=== PATIENT | female | born 2000 | race Caucasian/White ===

== ENCOUNTER 2020-06-24 06:56 | Inpatient (IN) | payer OTHER ==
[~2020-06-24 06:56] MED LIST: Bupivacaine 0.25% 10 ML SDV ONE
[2020-06-24] MEDS ORDERED: Sodium Chloride 0.9% 10 ML Syringe FLUSH PRN ×2 (07:19→07:22)
[2020-06-24] MEDS ORDERED: Lidocaine 1% 50 ML MDV INJECT ONE ×2 (07:19→07:30)
[2020-06-24] MEDS ORDERED: Acetaminophen 325 MG Tab PO PRN ×2 (07:19→07:30)
[2020-06-24] MEDS ORDERED: Calcium Carbonate 500 MG Tab.Chew PO PRN (07:19)
[2020-06-24] MEDS ORDERED: Nalbuphine 10 MG/ML Syringe IVPUSH PRN ×2 (07:19→07:22)
[2020-06-24] MEDS ORDERED: Ondansetron 4 MG/2 ML SDV IVPUSH PRN ×2 (07:19→07:30)
[2020-06-24] MEDS ORDERED: Famotidine 20 MG Tab PO PRN (07:30)
[2020-06-24] MEDS ORDERED: Simethicone 80 MG Tab.Chew PO ONE (07:30)
[2020-06-24] MEDS ORDERED: Oxytocin/Lactated Ringers 10 UNIT/1,000 ML BAG IV SCH ×3 (07:30)
[2020-06-24] MEDS ORDERED: Lactated Ringers 1,000 ML IV SCH (07:30)
[2020-06-24] MEDS ORDERED: Citric Acid/Sodium Citrate Solution 30 ML Cup PO PRN (07:30)
--- NOTE | 2020-06-24 08:18 | PCM.LDHP ---
L&D History of Present Illness - General Date of Service: 06/24/20 Admit Problem/Dx: Patient Status Order with Admit Dx/Problem 06/24/20 07:20 Patient Status [ADT] Routine Admission Diagnosis/Problem Admission Diagnosis/Problem Source of Information: Patient History Limitations: Reports: No Limitations - History of Present Illness Introduction:: 19 yo A1 at 39 weeks gestation with EDC determined by ultrasound at 13 weeks. She did have a placenta previa noted initially, but that resolved with subsequent ultrasounds. Baby has been small, measuring 2 weeks behind on ultrasound and 11% with the working EDC. We have been seeing her twice weekly with BPP and NST. She has had several BPP that scored 6/8 but then NST that day has been reactive, so final BPP score 8/10. Last ultrasound on 06/18/20 and EFW was 6 lb 1oz. She is admitted for induction of labor due to small baby. MARIAMA on last ultrasound was 15, cephalic presentation and possibly nuchal cord. I have never seen variable decels on NST. She is RH negative (A neg) and received Rhogam in April 2020. Her infectious disease screenings have been negative. 1 hour glucola normal at 116 and GBS swab negative. She did not do any screening for trisomy. She did receive Tdap immunization during the . She has been feeling well, just some [place]. Denies leaking fluid. NST on admission initially showed baby in a sleep pattern, but has since improved with moderate variability and good accelerations 15x15. No decels. Uterine irritability noted. Baseline FHR 120. 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 : 2 Para: 0 LMP (Approximate): Other OB/BYN History: Spontaneous miscarriage in March 2019 Social & Family History - Alcohol Use Alcohol Use History: No - Recreational Drug Use Recreational Drug Use: No - Living Situation & Occupation Living situation: Reports: H&P Review of Systems - Review of Systems: Review Of Systems: See Below General: Reports: No Symptoms HEENT: Reports: No Symptoms Pulmonary: Reports: No Symptoms Cardiovascular: Reports: No Symptoms Gastrointestinal: Reports: No Symptoms Genitourinary: Reports: No Symptoms Musculoskeletal: Reports: No Symptoms Skin: Reports: No Symptoms Psychiatric: Reports: No Symptoms Neurological: Reports: No Symptoms Hematologic/Lymphatic: Reports: No Symptoms Immunologic: Reports: No Symptoms L&D Exam - Exam Exam: See Below - Vital Signs Weight: 70.261 kg - OB Specific Contraction Frequency (min): Uterine irritability Movement: Active Heart Tones: Present Heart Tones per Min: 120 Heart Rate (FHR) Variability: Moderate (6-25 bmp) Presentation: Vertex Estimated Weight: 6 lb 1 oz - Michael Score Michael Score Cervix Position: Posterior Michael Score Consistency: Medium Michael Score Effacement: 0-30% Michael Score Dilation: Closed Michael Score Infant's Station: -3 Michael Score Total: 1 - Exam General: Alert, Oriented, Cooperative HEENT: Conjunctiva Clear, Mucosa Moist & [place], Pupils Equal, Pupils Reactive Neck: Supple, Trachea Midline Lungs: Normal Respiratory Effort Cardiovascular: Regular Rate, Regular Rhythm GI/Abdominal Exam: Soft, Non-Tender Rectal Exam: Deferred Genitourinary: Normal external exam Back Exam: Normal Inspection, Full Range of Motion Extremities: Normal Inspection, Non-Tender, No Pedal Edema Skin: Warm, Dry, Intact Psychiatric: Alert, Normal Affect, Normal Mood - Patient Data Lab Results Last 24 hrs: Laboratory Results - last 24 hr 06/24/20 Range/Units 07:37 WBC 10.10 H (3.98-10.04) K/mm3 RBC 4.26 (3.98-5.22) M/mm3 Hgb 13.7 (11.2-15.7) gm/dl Hct 40.2 (34.1-44.9) % MCV 94.4 (79.4-94.8) fl MCH 32.2 (25.6-32.2) pg MCHC 34.1 (32.2-35.5) g/dl RDW Std Deviation 43.0 (36.4-46.3) fL Plt Count 214 (182-369) K/mm3 MPV 10.1 (9.4-12.3) fl Neut % (Auto) 72.6 H (34.0-71.1) % Lymph % (Auto) 16.3 L (19.3-51.7) % [place] % (Auto) 9.7 (4.7-12.5) % Eos % (Auto) 0.7 (0.7-5.8) Baso % (Auto) 0.2 (0.1-1.2) % Neut # (Auto) 7.33 H (1.56-6.13) K/mm3 Lymph # (Auto) 1.65 (1.18-3.74) K/mm3 [place] # (Auto) 0.98 H (0.24-0.36) K/mm3 Eos # (Auto) 0.07 (0.04-0.36) K/mm3 Baso # (Auto) 0.02 (0.01-0.08) K/mm3 Result Diagrams: 06/24/20 07:37 - Problem List (1) 39 weeks gestation of SNOMED Code(s): 96472156 ICD Code: Z3A.39 - 39 WEEKS GESTATION OF Status: Acute Current Visit: Yes (2) Small for gestational age fetus affecting mother, antepartum SNOMED Code(s): 901757110, 480221884742 ICD Code: O36.5990 - MATERN CARE FOR OTH OR SUSP POOR FETL GRTH, UNSP TRI, UNSP Status: Acute Current Visit: Yes (3) Rh negative status during in third trimester SNOMED Code(s): 612148215 ICD Code: O26.893 - OTH RELATED CONDITIONS, THIRD TRIMESTER; Z67.91 - UNSPECIFIED BLOOD TYPE, RH NEGATIVE Status: Acute Current Visit: Yes (4) GERD (gastroesophageal reflux disease) SNOMED Code(s): 441591831 ICD Code: K21.9 - GASTRO-ESOPHAGEAL REFLUX DISEASE WITHOUT ESOPHAGITIS Status: Acute Current Visit: Yes Problem List Initiated/Reviewed/Updated: Yes Orders Last 24hrs: Active Orders 24 hr Category Date Time Status Patient Status [ADT] Routine ADT 06/24/20 07:20 Active Activity as Tolerated [RC] PFP Care 06/24/20 07:19 Active Communication Order [RC] ASDIRECTED Care 06/24/20 07:19 Active Communication Order [RC] ASDIRECTED Care 06/24/20 07:22 Active Heart Tones [RC] ASDIRECTED Care 06/24/20 07:23 Active Non Stress Test [RC] PER UNIT ROUTINE Care 06/24/20 07:19 Active Intake and Output [RC] QSHIFT Care 06/24/20 07:24 Active Notify Provider [RC] PRN Care 06/24/20 07:19 Active Notify Provider [RC] PRN Care 06/24/20 07:22 Active Peripheral IV Care [RC] . DIRECTED Care 06/24/20 07:19 Active Urinary Catheter Assessment [RC] ASDIRECTED Care 06/24/20 07:19 Active Vital Signs [RC] PER UNIT ROUTINE Care 06/24/20 07:19 Active Regular Diet [DIET] Diet 06/24/20 Breakfast Active CORONAVIRUS COVID-19 RAPID [MOLEC] Stat Lab 06/24/20 07:37 Received RAPID PLASMA REAGIN,RPR [CHEM] Routine Lab 06/24/20 07:37 Received TYPE AND SCREEN [BBK] Stat Lab 06/24/20 07:37 Received Acetaminophen [TylenoL] Med 06/24/20 07:19 Active 650 mg PO Q4H PRN Calcium Carbonate [Tums] Med 06/24/20 07:19 Active 1,000 mg PO Q2H PRN Citric Acid/Sodium Citrate [Bicitra Solution] Med 06/24/20 07:30 Active 15 ml PO Q4H PRN Famotidine [Pepcid] Med 06/24/20 07:30 Active 20 mg PO Q12H PRN Lactated Ringers [Ringers, Lactated] 1,000 ml Med 06/24/20 07:30 Active IV ASDIRECTED Nalbuphine [Nubain] Med 06/24/20 07:19 Active 10 mg IVPUSH Q2H PRN Ondansetron [Zofran] Med 06/24/20 07:19 Active 4 mg IVPUSH Q4H PRN Oxytocin/Lactated Ringers [Pitocin in LR 10 Units/1,000 Med 06/24/20 07:30 Active ML] 10 unit in 1,000 ml IV .CONTINUOUS Oxytocin/Lactated Ringers [Pitocin in LR 10 Units/1,000 Med 06/24/20 07:30 Active ML] 10 unit in 1,000 ml IV TITRATE Sodium Chloride 0.9% [Saline Flush] Med 06/24/20 07:19 Active 10 ml FLUSH ASDIRECTED PRN Electronic Heart Tones Ext w TOCO [WOMSER] Oth 06/24/20 07:19 Ordered Routine Electronic Heart Tones Internal [WOMSER] Per Unit Ot 06/24/20 07:19 Ordered Routine Peripheral IV Insertion Adult [OM.PC] Routine [facility] 06/24/20 07:19 Ordered Telemetry Monitoring [WOMSER] Routine [facility] 06/24/20 07:22 Ordered Resuscitation Status Routine Resus Stat 06/24/20 07:19 Ordered Medication Orders Acetaminophen (Tylenol) 650 mg PO Q4H PRN PRN Reason: Pain (Mild 1-3) and fever Calcium Carbonate/Glycine (Tums) 1,000 mg PO Q2H PRN PRN Reason: Indigestion Citric Acid/Sodium Citrate (Bicitra Solution) 15 ml PO Q4H PRN PRN Reason: Indigestion Famotidine (Pepcid) 20 mg PO Q12H PRN PRN Reason: Heartburn Oxytocin/Lactated Ringer's (Pitocin In Lr 10 Units/1,000 Ml) 10 unit in 1,000 mls @ 12 mls/hr IV TITRATE SANJAY; Protocol Oxytocin/Lactated Ringer's (Pitocin In Lr 10 Units/1,000 Ml) 10 unit in 1,000 mls @ 100 mls/hr IV .CONTINUOUS SANJAY; Protocol Lactated Ringer's (Ringers, Lactated) 1,000 mls @ 100 mls/hr IV ASDIRECTED SANJAY Nalbuphine HCl (Nubain) 10 mg IVPUSH Q2H PRN PRN Reason: Pain Ondansetron HCl (Zofran) 4 mg IVPUSH Q4H PRN PRN Reason: Nausea/Vomiting Sodium Chloride (Saline Flush) 10 ml FLUSH ASDIRECTED PRN PRN Reason: Keep Vein Open Assessment/Plan Comment:: at 39 weeks gestation with SGA baby, on 11% for weight growth curve on ultrasound. Weekly BPP and NST have been wnl. Baby has still been active. GBS negative. RH negative. Cervix is not favorable. Plan: Cervical ripening with cytotec 25 mcg vaginal tabs q 4 h. Attempt mullins catheter to help with cervical ripening after first cytote c dose. Pitocin induction per protocol when appropriate. Continuous monitoring for now. Ultrasound suggested a nuchal cord. Mom plans to breast feed.
[2020-06-24] MEDS: Misoprostol 25 MCG (1/4 of 100 MCG) Tab VAG SCH ×3 (08:55→19:49)
[2020-06-24] MEDS ORDERED: Bupivacaine/fentaNYL/NS 100 ML Bag EPIDUR PRN (09:49)
[2020-06-24] MEDS ORDERED: ePHEDrine 50 MG/ML SDV IVPUSH PRN (09:49)
[2020-06-24] MEDS ORDERED: diphenhydrAMINE 50 MG/ML SDV IVPUSH PRN (09:49)
[2020-06-24] MEDS ORDERED: fentaNYL 100 MCG/2 ML SDV EPIDUR PRN (09:49)
--- NOTE | 2020-06-24 13:25 | PCM.PNLD ---
Labor Progress Note - VS & Meds Vital Signs: Last Vital Signs Temp 36.8 C 06/24/20 07:19 Pulse 87 06/24/20 07:19 Resp 14 06/24/20 07:19 BP 118/74 06/24/20 07:19 Pulse Ox 100 06/24/20 07:19 Active Medications: Current Medications Acetaminophen (Tylenol) 650 mg PO Q4H PRN PRN Reason: Pain (Mild 1-3) and fever Calcium Carbonate/Glycine (Tums) 1,000 mg PO Q2H PRN PRN Reason: Indigestion Citric Acid/Sodium Citrate (Bicitra Solution) 15 ml PO Q4H PRN PRN Reason: Indigestion Diphenhydramine HCl (Benadryl) 25 mg IVPUSH Q6H PRN PRN Reason: pruritis Ephedrine Sulfate (Ephedrine Sulfate) 5 mg IVPUSH ASDIRECTED PRN PRN Reason: Hypotension Famotidine (Pepcid) 20 mg PO Q12H PRN PRN Reason: Heartburn Fentanyl (Sublimaze) 100 mcg EPIDUR Q3H PRN PRN Reason: Pain Fentanyl/Bupivacaine HCl (Fentanyl/Bupivacaine/Ns 2 Mcg-0.125% 100 Ml) 100 ml EPIDUR ASDIRECTED PRN PRN Reason: Pain Oxytocin/Lactated Ringer's (Pitocin In Lr 10 Units/1,000 Ml) 10 unit in 1,000 mls @ 12 mls/hr IV TITRATE SANJAY; Protocol Oxytocin/Lactated Ringer's (Pitocin In Lr 10 Units/1,000 Ml) 10 unit in 1,000 mls @ 100 mls/hr IV .CONTINUOUS SANJAY; Protocol Lactated Ringer's (Ringers, Lactated) 1,000 mls @ 100 mls/hr IV ASDIRECTED SANJAY Misoprostol (Cytotec) 25 mcg VAG Q4H SANJAY Stop: 06/24/20 17:01 Last Admin: 06/24/20 13:14 Dose: 25 mcg Documented by: Nalbuphine HCl (Nubain) 10 mg IVPUSH Q2H PRN PRN Reason: Pain Ondansetron HCl (Zofran) 4 mg IVPUSH Q4H PRN PRN Reason: Nausea/Vomiting Sodium Chloride (Saline Flush) 10 ml FLUSH ASDIRECTED PRN PRN Reason: Keep Vein Open Discontinued Medications Acetaminophen (Tylenol) 650 mg PO Q4H PRN PRN Reason: Pain (Mild 1-3) and fever Oxytocin/Lactated Ringer's (Pitocin In Lr 10 Units/1,000 Ml) 10 unit in 1,000 mls @ 500 mls/hr IV .CONTINUOUS SANJAY Lactated Ringer's (Ringers, Lactated) 1,000 mls @ 100 mls/hr IV ASDIRECTED SANJAY Lidocaine HCl (Xylocaine 1%) 50 ml INJECT ONETIME ONE Stop: 06/24/20 07:20 Lidocaine HCl (Xylocaine 1%) 20 ml INJECT ONETIME ONE Stop: 06/24/20 07:31 Nalbuphine HCl (Nubain) 10 mg IVPUSH Q2H PRN PRN Reason: Pain Ondansetron HCl (Zofran) 4 mg IVPUSH Q4H PRN PRN Reason: Nausea/Vomiting Simethicone (Simethicone) 80 mg PO ONETIME ONE Stop: 06/24/20 07:31 Last Admin: 06/24/20 09:05 Dose: Not Given Documented by: Sodium Chloride (Saline Flush) 10 ml FLUSH ASDIRECTED PRN PRN Reason: Keep Vein Open - Uterine Contractions Uterine Monitoring Mode: External [place] Contraction Frequency (min): Uterine irritability Uterine Resting Tone: Soft - Monitoring Monitor Mode: External Ultrasound Heart Rate (FHR) Baseline: 120 Heart Rate (FHR) Variability: Moderate (6-25 bmp) Accelerations: Present, 15x15 Decelerations: None Strip Review: Category I - Vaginal Exam Dilation (cm): 1 Effacement (Percent): 25 Station: -3 Cervical Position: Posterior Sterile Vaginal Exam Performed By: Aleah Horne Vaginal Exam Comment: Cervix is medium to soft consistency - Labor Progress (Free Text) Labor Progress: Patient received first vaginal cytotec dose at 0855 and she is feeling some tightenings and cramping, but no pain. [place] continues to show irritability, occasional contraction. O/E: Cervix has changed, it is softer, 1cm dilated and 25% effaced and presenting part is palpable, about -3 . This am it was ballotable. A: Not in labor, continue cervical ripening. monitor Category I. P: Mao catheter placed through cervical os using sterile speculum and balloon inflated to 30cc. Second cytotec 25 mcg dose placed intravaginally at 1315. Continue monitoring, expectant management. Check in [address] third dose of cytotec if appropriate.
[2020-06-24] MEDS: Lactated Ringers 1,000 ML IV SCH ×4 (16:42→21:27)
--- NOTE | 2020-06-24 18:04 | PCM.PNLD ---
Labor Progress Note - VS & Meds Vital Signs: Last Vital Signs Temp 36.8 C 06/24/20 07:19 Pulse 87 06/24/20 07:19 Resp 14 06/24/20 07:19 BP 118/74 06/24/20 07:19 Pulse Ox 100 06/24/20 07:19 Active Medications: Current Medications Acetaminophen (Tylenol) 650 mg PO Q4H PRN PRN Reason: Pain (Mild 1-3) and fever Calcium Carbonate/Glycine (Tums) 1,000 mg PO Q2H PRN PRN Reason: Indigestion Citric Acid/Sodium Citrate (Bicitra Solution) 15 ml PO Q4H PRN PRN Reason: Indigestion Diphenhydramine HCl (Benadryl) 25 mg IVPUSH Q6H PRN PRN Reason: pruritis Ephedrine Sulfate (Ephedrine Sulfate) 5 mg IVPUSH ASDIRECTED PRN PRN Reason: Hypotension Famotidine (Pepcid) 20 mg PO Q12H PRN PRN Reason: Heartburn Fentanyl (Sublimaze) 100 mcg EPIDUR Q3H PRN PRN Reason: Pain Fentanyl/Bupivacaine HCl (Fentanyl/Bupivacaine/Ns 2 Mcg-0.125% 100 Ml) 100 ml EPIDUR ASDIRECTED PRN PRN Reason: Pain Oxytocin/Lactated Ringer's (Pitocin In Lr 10 Units/1,000 Ml) 10 unit in 1,000 mls @ 12 mls/hr IV TITRATE SANJAY; Protocol Oxytocin/Lactated Ringer's (Pitocin In Lr 10 Units/1,000 Ml) 10 unit in 1,000 mls @ 100 mls/hr IV .CONTINUOUS SANJAY; Protocol Lactated Ringer's (Ringers, Lactated) 1,000 mls @ 100 mls/hr IV ASDIRECTED SANJAY Last Admin: 06/24/20 16:42 Dose: 100 mls/hr Documented by: Nalbuphine HCl (Nubain) 10 mg IVPUSH Q2H PRN PRN Reason: Pain Ondansetron HCl (Zofran) 4 mg IVPUSH Q4H PRN PRN Reason: Nausea/Vomiting Sodium Chloride (Saline Flush) 10 ml FLUSH ASDIRECTED PRN PRN Reason: Keep Vein Open Discontinued Medications Acetaminophen (Tylenol) 650 mg PO Q4H PRN PRN Reason: Pain (Mild 1-3) and fever Oxytocin/Lactated Ringer's (Pitocin In Lr 10 Units/1,000 Ml) 10 unit in 1,000 mls @ 500 mls/hr IV .CONTINUOUS SANJAY Lactated Ringer's (Ringers, Lactated) 1,000 mls @ 100 mls/hr IV ASDIRECTED SANJAY Lidocaine HCl (Xylocaine 1%) 50 ml INJECT ONETIME ONE Stop: 06/24/20 07:20 Lidocaine HCl (Xylocaine 1%) 20 ml INJECT ONETIME ONE Stop: 06/24/20 07:31 Misoprostol (Cytotec) 25 mcg VAG Q4H SANJAY Stop: 06/24/20 17:01 Last Admin: 06/24/20 13:14 Dose: 25 mcg Documented by: Nalbuphine HCl (Nubain) 10 mg IVPUSH Q2H PRN PRN Reason: Pain Ondansetron HCl (Zofran) 4 mg IVPUSH Q4H PRN PRN Reason: Nausea/Vomiting Simethicone (Simethicone) 80 mg PO ONETIME ONE Stop: 06/24/20 07:31 Last Admin: 06/24/20 09:05 Dose: Not Given Documented by: Sodium Chloride (Saline Flush) 10 ml FLUSH ASDIRECTED PRN PRN Reason: Keep Vein Open - Uterine Contractions Uterine Monitoring Mode: External [place] Contraction Frequency (min): 1-2 minutes Contraction Duration (sec): 60 Contraction Intensity: Moderate to Strong Uterine Resting Tone: Soft - Monitoring Monitor Mode: External Ultrasound Heart Rate (FHR) Baseline: 120 Heart Rate (FHR) Variability: Moderate (6-25 bmp) Accelerations: Present, 15x15 Decelerations: None Strip Review: Category I - Vaginal Exam Dilation (cm): 4-5 Effacement (Percent): 75 Station: -2 Cervical Position: Anterior Sterile Vaginal Exam Performed By: Aleah Horne Vaginal Exam Comment: Cervix is soft consistency - Labor Progress (Free Text) Labor Progress: Patient was feeling contractions, rating at 9/10 earlier, but since the mullins bulb came out at about 1700, her contractions have decreased in intensity. She has been up on the birthing ball. She feels the contractions low and anterior. Membranes intact. O/E: Vag exam as noted, she has changed significantly since 1330 when last dose of cytotec placed. AROM done to augment labor and small amount of clear fluid drained. Vertex presenting. A: Latent phase of labor, getting into active labor. She is requesting epidural now since I did AROM. P: Expectant management of labor. Will see how contractions progress with AROM and use pitocin as needed to augment. IV fluid bolus and epidural. continue with continuous monitoring.
--- NOTE | 2020-06-24 18:46 | PCM.PREANE ---
Preanesthetic Assessment - Procedure Proposed Procedure: epidural - Anesthesia/Transfusion/Family Hx Anesthesia History: Prior Anesthesia Without Reaction Family History of Anesthesia Reaction: No Transfusion History: No Prior Transfusion(s) - Review of Systems General: Fatigue Pulmonary: No Symptoms Cardiovascular: No Symptoms Gastrointestinal: Abdominal Pain (labor) Neurological: No Symptoms Other: Reports: None - Physical Assessment Vital Signs: Last Vital Signs Temp 36.8 C 06/24/20 07:19 Pulse 87 06/24/20 07:19 Resp 14 06/24/20 07:19 BP 118/74 06/24/20 07:19 Pulse Ox 100 06/24/20 07:19 Height: 1.55 m Weight: 70.261 kg ASA Class: 2 Mental Status: Alert & Oriented x3 Airway Class: Mallampati = 1 Dentition: Reports: Normal Dentition Thyro-Mental Finger Breadths: 3 Mouth Opening Finger Breadths: 3 ROM/Head Extension: Full Lungs: Clear to Auscultation, Normal Respiratory Effort Cardiovascular: Regular Rate, Regular Rhythm - Lab Values: Laboratory Last Values WBC 10.10 K/mm3 (3.98-10.04) H 06/24/20 07:37 RBC 4.26 M/mm3 (3.98-5.22) 06/24/20 07:37 Hgb 13.7 gm/dl (11.2-15.7) 06/24/20 07:37 Hct 40.2 % (34.1-44.9) 06/24/20 07:37 MCV 94.4 fl (79.4-94.8) 06/24/20 07:37 MCH 32.2 pg (25.6-32.2) 06/24/20 07:37 MCHC 34.1 g/dl (32.2-35.5) 06/24/20 07:37 RDW Std Deviation 43.0 fL (36.4-46.3) 06/24/20 07:37 Plt Count 214 K/mm3 (182-369) 06/24/20 07:37 MPV 10.1 fl (9.4-12.3) 06/24/20 07:37 Neut % (Auto) 72.6 % (34.0-71.1) H 06/24/20 07:37 Lymph % (Auto) 16.3 % (19.3-51.7) L 06/24/20 07:37 [place] % (Auto) 9.7 % (4.7-12.5) 06/24/20 07:37 Eos % (Auto) 0.7 (0.7-5.8) 06/24/20 07:37 Baso % (Auto) 0.2 % (0.1-1.2) 06/24/20 07:37 Neut # (Auto) 7.33 K/mm3 (1.56-6.13) H 06/24/20 07:37 Lymph # (Auto) 1.65 K/mm3 (1.18-3.74) 06/24/20 07:37 [place] # (Auto) 0.98 K/mm3 (0.24-0.36) H 06/24/20 07:37 Eos # (Auto) 0.07 K/mm3 (0.04-0.36) 06/24/20 07:37 Baso # (Auto) 0.02 K/mm3 (0.01-0.08) 06/24/20 07:37 SARS CoV-2 RNA Rapid [place] Negative (NEGATIVE) 06/24/20 07:37 Blood Type A NEGATIVE 06/24/20 07:37 Gel Antibody Screen Positive 06/24/20 07:37 - Allergies Allergies/Adverse Reactions: Allergies Allergy/AdvReac Type Severity Reaction Status Date / Time No Known Allergies Allergy Verified 06/24/20 07:18 - Anesthesia Plan Pre-Op Medication Ordered: None - Acknowledgements Anesthesia Type Planned: Epidural Pt an Appropriate Candidate for the Planned Anesthesia: Yes Alternatives and Risks of Anesthesia Discussed w Pt/Guardian: Yes Pt/Guardian Understands and Agrees with Anesthesia Plan: Yes PreAnesthesia Questionnaire - Past Health History Medical/Surgical History: Denies Medical/Surgical History Gastrointestinal History: Reports: GERD 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 Other OB/BYN History: Spontaneous miscarriage in March 2019 Psychiatric History: Reports: Depression - Past Surgical History HEENT Surgical History: Reports: Oral Surgery, Other (See Below) Other HEENT Surgeries/Procedures: wisdom teeth extraction GI Surgical History: Reports: None - SUBSTANCE USE Smoking Status *Q: Former Smoker Recreational Drug Use History: No - HOME MEDS Home Medications: Home Meds Cholecalciferol (Vitamin D3) [Vitamin D3] 125 mcg PO DAILY 06/24/20 [History] Vits #93/Iron Fum/FA [ Formula Tablet] 1 each PO DAILY 06/24/20 [History] - CURRENT (IN HOUSE) MEDS Current Meds: Current Medications Acetaminophen (Tylenol) 650 mg PO Q4H PRN PRN Reason: Pain (Mild 1-3) and fever Calcium Carbonate/Glycine (Tums) 1,000 mg PO Q2H PRN PRN Reason: Indigestion Citric Acid/Sodium Citrate (Bicitra Solution) 15 ml PO Q4H PRN PRN Reason: Indigestion Diphenhydramine HCl (Benadryl) 25 mg IVPUSH Q6H PRN PRN Reason: pruritis Ephedrine Sulfate (Ephedrine Sulfate) 5 mg IVPUSH ASDIRECTED PRN PRN Reason: Hypotension Famotidine (Pepcid) 20 mg PO Q12H PRN PRN Reason: Heartburn Fentanyl (Sublimaze) 100 mcg EPIDUR Q3H PRN PRN Reason: Pain Last Admin: 06/24/20 18:10 Dose: 100 mcg Documented by: Fentanyl/Bupivacaine HCl (Fentanyl/Bupivacaine/Ns 2 Mcg-0.125% 100 Ml) 100 ml EPIDUR ASDIRECTED PRN PRN Reason: Pain Last Admin: 06/24/20 18:11 Dose: 100 ml Documented by: Oxytocin/Lactated Ringer's (Pitocin In Lr 10 Units/1,000 Ml) 10 unit in 1,000 mls @ 12 mls/hr IV TITRATE SANJAY; Protocol Oxytocin/Lactated Ringer's (Pitocin In Lr 10 Units/1,000 Ml) 10 unit in 1,000 mls @ 100 mls/hr IV .CONTINUOUS SANJAY; Protocol Lactated Ringer's (Ringers, Lactated) 1,000 mls @ 100 mls/hr IV ASDIRECTED SANJAY Last Admin: 06/24/20 16:42 Dose: 100 mls/hr Documented by: Nalbuphine HCl (Nubain) 10 mg IVPUSH Q2H PRN PRN Reason: Pain Ondansetron HCl (Zofran) 4 mg IVPUSH Q4H PRN PRN Reason: Nausea/Vomiting Sodium Chloride (Saline Flush) 10 ml FLUSH ASDIRECTED PRN PRN Reason: Keep Vein Open Discontinued Medications Acetaminophen (Tylenol) 650 mg PO Q4H PRN PRN Reason: Pain (Mild 1-3) and fever Oxytocin/Lactated Ringer's (Pitocin In Lr 10 Units/1,000 Ml) 10 unit in 1,000 mls @ 500 mls/hr IV .CONTINUOUS SANJAY Lactated Ringer's (Ringers, Lactated) 1,000 mls @ 100 mls/hr IV ASDIRECTED SANJAY Lidocaine HCl (Xylocaine 1%) 50 ml INJECT ONETIME ONE Stop: 06/24/20 07:20 Lidocaine HCl (Xylocaine 1%) 20 ml INJECT ONETIME ONE Stop: 06/24/20 07:31 Misoprostol (Cytotec) 25 mcg VAG Q4H SANJAY Stop: 06/24/20 17:01 Last Admin: 06/24/20 13:14 Dose: 25 mcg Documented by: Nalbuphine HCl (Nubain) 10 mg IVPUSH Q2H PRN PRN Reason: Pain Ondansetron HCl (Zofran) 4 mg IVPUSH Q4H PRN PRN Reason: Nausea/Vomiting Simethicone (Simethicone) 80 mg PO ONETIME ONE Stop: 06/24/20 07:31 Last Admin: 06/24/20 09:05 Dose: Not Given Documented by: Sodium Chloride (Saline Flush) 10 ml FLUSH ASDIRECTED PRN PRN Reason: Keep Vein Open
[2020-06-24] MEDS ORDERED: Lidocaine 1% 50 ML MDV ONE (23:47)
--- NOTE | 2020-06-25 00:30 | PCM.DEL ---
L & D Note - General Info Date of Service: 06/24/20 Mother's Due Date: 07/01/20 - Delivery Note Labor: Augmented by ARM Cervical Ripening Method: Balloon Device, Misoprostil Delivery Outcome: Livebirth Delivery Method: Spontaneous Vaginal Delivery-Single Delivery Mode: Spontaneous Presentation: Left Occiput Anterior (PAULA) Nuchal Cord: Present, Reduced (1 loop, loose and easily reduced) Prep: Povidone-Iodine (Betadine Anesthesia Type: Epidural Amniotic Fluid Description: Clear Episiotomy Type: None Laceration: 2nd Degree Suture type: Vicryl Suture size: 3-0 Placenta: Intact, Spontaneous (Marginal insertion of the cord) Cord: 3 Vessels Estimated Blood Loss: 300 Resuscitation Needed: No : Suctioned, Bulb Syringe, Stimulated, Warmed, [place] Used Provider: Aleah Horne Score 1 min: 8 Score 5 min: 9 Delivery Comments (Free Text/Narrative):: 19 yo A1 at 39 weeks gestation with EDC determined by ultrasound at 13 weeks. She did have a placenta previa noted initially, but that resolved with subsequent ultrasounds. Baby has been small, measuring 2 weeks behind on ultrasound and 11% with the working EDC. We have been seeing her twice weekly with BPP and NST. She has had several BPP that scored 6/8 but then NST that day has been reactive, so final BPP score 8/10. Last ultrasound on 06/18/20 and EFW was 6 lb 1oz. She is admitted for induction of labor due to small baby. MARIAMA on last ultrasound was 15, cephalic presentation and possibly nuchal cord. I have never seen variable decels on NST. She is RH negative (A neg) and received Rhogam in April 2020. Her infectious disease screenings have been negative. 1 hour glucola normal at 116 and GBS swab negative. She did not do any screening for trisomy. She did receive Tdap immunization during the . Cervix was fingertip, long, firm and posterior with station -4 on admit. She had 1 dose of vaginal cytotec 25 mcg placed at 0855 and then at noon, I placed a mullins catheter through the cervical os and inflated the bulb to 30 cc to help ripen the cervix. A second cytotec dose was placed at 1315. At 1750, she was having moderate to strong contractions, every 1-2 minutes. The mullins had come out at about 1630. When I checked her at 1750, she was 4-5 cm dilated, 75% effaced, vertex, anterior and soft and station -2. I performed AROM to augment labor at 1800 and the fluid was clear. She requested an epidural shortly after. Epidural was placed at 1845 and she was comfortable. monitor was mostly reactive with good accelerations and periods of minimal variability. No decels. By 2300 she was completely dilated and station 0 and feeling pushy. I was called to come in. She started pushing at 2308. She pushed very well and fetus tolerated second stage of labor. Baby delivered in PAULA presentation, there was nuchal cord x 1 that was loose and easily slipped over baby's head. 3 vessels in the cord. The shoulders and the rest of the baby delivered without difficulty. It was a baby girl. Time of delivery was 2340. Baby weighed 2810 grams (6 lb 3.1oz). Apgars were 8 and 9 at 1 and 5 minutes respectively. Baby was dried and stimulated and mouth and nose suctioned with bulb suction. She was placed skin to skin on mother's abdomen. Once the cord stopped pulsating, it was clamped and cut and then baby was moved up onto mother's chest. Placenta delivered spontaneously at 2345 and was intact. There was a marginal insertion of the cord and it looked like there was a wedge shaped infarction on one edge of the placenta. She received pitocin IV bolus after delivery of baby and uterus firmed down nicely. EBL was 300 ml. There was a second degree laceration that was repaired in the usual manner with 3-0 Vicryl. Bimanual exam after the repair was completed and some blood clots were expressed. Uterus was firm. Both Mom and Baby were left in the delivery room in stable condition. Induction Criteria - Michael Score Michael Score Dilation: Closed Michael Score Effacement: 0-30% Michael Score Infant's Station: -3 Michael Score Consistency: Medium Michael Score Cervix Position: Posterior Michael Score Total: 1 Michael Score Presenting Part: Reports: Cephalic - Induction Gestational Age >/= 39 wks: Yes Medical Indication: SGA baby Estimated Pelvis: Reports: Adequate Reassuring Monitoring Strip: Yes Absence of Tachy Systole: Yes - Augmentation Estimated Pelvis: Reports: Adequate Weight Estimated:: Reports: AGA Reassuring Monitoring Strip: Yes Absence of Tachy Systole: Yes - General Info Date of Service: 06/24/20 Admission Dx/Problem (Free Text): Spontaneous Vaginal Delivery Functional Status: Reports: Pain Controlled - Review of Systems General: Reports: No Symptoms HEENT: Reports: No Symptoms Pulmonary: Reports: No Symptoms Cardiovascular: Reports: No Symptoms Gastrointestinal: Reports: No Symptoms Genitourinary: Reports: No Symptoms Musculoskeletal: Reports: No Symptoms Skin: Reports: No Symptoms Neurological: Reports: No Symptoms Psychiatric: Reports: No Symptoms - Patient Data Vitals - Most Recent: Last Vital Signs Temp 36.8 C 06/24/20 07:19 Pulse 87 06/24/20 07:19 Resp 14 06/24/20 07:19 BP 118/74 06/24/20 07:19 Pulse Ox 100 06/24/20 07:19 Weight - Most Recent: 70.261 kg I&O - Last 24 Hours: Intake & Output 06/24/20 06/24/20 06/25/20 14:59 22:59 06:59 Intake Total 3000 Balance 3000 Lab Results Last 24 Hours: Laboratory Results - last 24 hr 06/24/20 06/24/20 06/24/20 Range/Units 07:37 07:37 07:37 WBC 10.10 H (3.98-10.04) K/mm3 RBC 4.26 (3.98-5.22) M/mm3 Hgb 13.7 (11.2-15.7) gm/dl Hct 40.2 (34.1-44.9) % MCV 94.4 (79.4-94.8) fl MCH 32.2 (25.6-32.2) pg MCHC 34.1 (32.2-35.5) g/dl RDW Std Deviation 43.0 (36.4-46.3) fL Plt Count 214 (182-369) K/mm3 MPV 10.1 (9.4-12.3) fl Neut % (Auto) 72.6 H (34.0-71.1) % Lymph % (Auto) 16.3 L (19.3-51.7) % [place] % (Auto) 9.7 (4.7-12.5) % Eos % (Auto) 0.7 (0.7-5.8) Baso % (Auto) 0.2 (0.1-1.2) % Neut # (Auto) 7.33 H (1.56-6.13) K/mm3 Lymph # (Auto) 1.65 (1.18-3.74) K/mm3 [place] # (Auto) 0.98 H (0.24-0.36) K/mm3 Eos # (Auto) 0.07 (0.04-0.36) K/mm3 Baso # (Auto) 0.02 (0.01-0.08) K/mm3 RPR Non-reactive (NONREACTIVE) SARS CoV-2 RNA Rapid H[place]ISON (NEGATIVE) Blood Type A NEGATIVE Gel Antibody Screen Positive 06/24/20 Range/Units 07:37 WBC (3.98-10.04) K/mm3 RBC (3.98-5.22) M/mm3 Hgb (11.2-15.7) gm/dl Hct (34.1-44.9) % MCV (79.4-94.8) fl MCH (25.6-32.2) pg MCHC (32.2-35.5) g/dl RDW Std Deviation (36.4-46.3) fL Plt Count (182-369) K/mm3 MPV (9.4-12.3) fl Neut % (Auto) (34.0-71.1) % Lymph % (Auto) (19.3-51.7) % [place] % (Auto) (4.7-12.5) % Eos % (Auto) (0.7-5.8) Baso % (Auto) (0.1-1.2) % Neut # (Auto) (1.56-6.13) K/mm3 Lymph # (Auto) (1.18-3.74) K/mm3 [place] # (Auto) (0.24-0.36) K/mm3 Eos # (Auto) (0.04-0.36) K/mm3 Baso # (Auto) (0.01-0.08) K/mm3 RPR (NONREACTIVE) SARS CoV-2 RNA Rapid [place] Negative (NEGATIVE) Blood Type Gel Antibody Screen Med Orders - Current: Current Medications Acetaminophen (Tylenol) 650 mg PO Q4H PRN PRN Reason: Pain (Mild 1-3) and fever Calcium Carbonate/Glycine (Tums) 1,000 mg PO Q2H PRN PRN Reason: Indigestion Citric Acid/Sodium Citrate (Bicitra Solution) 15 ml PO Q4H PRN PRN Reason: Indigestion Diphenhydramine HCl (Benadryl) 25 mg IVPUSH Q6H PRN PRN Reason: pruritis Ephedrine Sulfate (Ephedrine Sulfate) 5 mg IVPUSH ASDIRECTED PRN PRN Reason: Hypotension Famotidine (Pepcid) 20 mg PO Q12H PRN PRN Reason: Heartburn Last Admin: 06/24/20 20:20 Dose: 20 mg Documented by: Fentanyl (Sublimaze) 100 mcg EPIDUR Q3H PRN PRN Reason: Pain Last Admin: 06/24/20 18:10 Dose: 100 mcg Documented by: Fentanyl/Bupivacaine HCl (Fentanyl/Bupivacaine/Ns 2 Mcg-0.125% 100 Ml) 100 ml EPIDUR ASDIRECTED PRN PRN Reason: Pain Last Admin: 06/24/20 18:11 Dose: 100 ml Documented by: Oxytocin/Lactated Ringer's (Pitocin In Lr 10 Units/1,000 Ml) 10 unit in 1,000 mls @ 12 mls/hr IV TITRATE SANJAY; Protocol Oxytocin/Lactated Ringer's (Pitocin In Lr 10 Units/1,000 Ml) 10 unit in 1,000 mls @ 100 mls/hr IV .CONTINUOUS SANJAY; Protocol Last Admin: 06/24/20 23:41 Dose: 500 mls/hr Documented by: Lactated Ringer's (Ringers, Lactated) 1,000 mls @ 100 mls/hr IV ASDIRECTED SANJAY Last Admin: 06/24/20 21:27 Dose: 100 mls/hr Documented by: Nalbuphine HCl (Nubain) 10 mg IVPUSH Q2H PRN PRN Reason: Pain Ondansetron HCl (Zofran) 4 mg IVPUSH Q4H PRN PRN Reason: Nausea/Vomiting Last Admin: 06/24/20 19:52 Dose: 4 mg Documented by: Sodium Chloride (Saline Flush) 10 ml FLUSH ASDIRECTED PRN PRN Reason: Keep Vein Open Discontinued Medications Acetaminophen (Tylenol) 650 mg PO Q4H PRN PRN Reason: Pain (Mild 1-3) and fever Oxytocin/Lactated Ringer's (Pitocin In Lr 10 Units/1,000 Ml) 10 unit in 1,000 mls @ 500 mls/hr IV .CONTINUOUS SANJAY Lactated Ringer's (Ringers, Lactated) 1,000 mls @ 100 mls/hr IV ASDIRECTED [facility] Lidocaine HCl (Xylocaine 1%) 50 ml INJECT ONETIME ONE Stop: 06/24/20 07:20 Last Admin: 06/24/20 23:50 Dose: 10 ml Documented by: Lidocaine HCl (Xylocaine 1%) 20 ml INJECT ONETIME ONE Stop: 06/24/20 07:31 Last Admin: 06/24/20 23:56 Dose: 20 ml Documented by: Lidocaine HCl (Xylocaine 1%) Confirm Administered Dose 50 ml .ROUTE .STK-MED ONE Stop: 06/24/20 23:48 Last Admin: 06/24/20 23:57 Dose: Not Given Documented by: Misoprostol (Cytotec) 25 mcg VAG Q4H [facility] Stop: 06/24/20 17:01 Last Admin: 06/24/20 19:49 Dose: Not Given Documented by: Nalbuphine HCl (Nubain) 10 mg IVPUSH Q2H PRN PRN Reason: Pain Ondansetron HCl (Zofran) 4 mg IVPUSH Q4H PRN PRN Reason: Nausea/Vomiting Simethicone (Simethicone) 80 mg PO ONETIME ONE Stop: 06/24/20 07:31 Last Admin: 06/24/20 09:05 Dose: Not Given Documented by: Sodium Chloride (Saline Flush) 10 ml FLUSH ASDIRECTED PRN PRN Reason: Keep Vein Open - Exam General: Alert, Oriented, Cooperative, No Acute Distress HEENT: Pupils Equal, Mucous Membr. Moist/[place] Neck: Supple Lungs: Normal Respiratory Effort Cardiovascular: Regular Rate, Regular Rhythm GI/Abdominal Exam: Normal Bowel Sounds, Soft (Female) Exam: Enlarged Uterus (Fundus firm), Vaginal Bleeding, Other (second degree perineal laceration, repaired.) Back Exam: Normal Inspection, Full Range of Motion Extremities: Normal Inspection, Normal Range of Motion, Non-Tender, No Pedal Edema Skin: Warm, Dry, Intact Wound/Incisions: Healing Well Neurological: No New Focal Deficit Psy/Mental Status: Alert, Normal Affect, Normal Mood - Problem List & Annotations (1) 39 weeks gestation of SNOMED Code(s): 47024092 Code(s): Z3A.39 - 39 WEEKS GESTATION OF Status: Acute Current Visit: Yes (2) Small for gestational age fetus affecting mother, antepartum SNOMED Code(s): 699906899, 165048716065 Code(s): O36.5990 - MATERN CARE FOR OTH OR SUSP POOR FETL GRTH, UNSP TRI, UNSP Status: Acute Current Visit: Yes (3) Rh negative status during in third trimester SNOMED Code(s): 823586301 Code(s): O26.893 - OTH RELATED CONDITIONS, THIRD TRIMESTER; Z67.91 - UNSPECIFIED BLOOD TYPE, RH NEGATIVE Status: Acute Current Visit: Yes (4) GERD (gastroesophageal reflux disease) SNOMED Code(s): 125170787 Code(s): K21.9 - GASTRO-ESOPHAGEAL REFLUX DISEASE WITHOUT ESOPHAGITIS Status: Acute Current Visit: Yes (5) Spontaneous vaginal delivery SNOMED Code(s): 748136774 Code(s): O80 - ENCOUNTER FOR FULL-TERM UNCOMPLICATED DELIVERY Status: Acute Current Visit: Yes (6) Breast feeding status of mother SNOMED Code(s): 013139429 Code(s): Z39.1 - ENCOUNTER FOR CARE AND EXAMINATION OF LACTATING MOTHER Status: Acute Current Visit: Yes - Problem List Review Problem List Initiated/Reviewed/Updated: Yes - My Orders Last 24 Hours: My Active Orders 06/24/20 Breakfast Regular Diet [DIET] 06/24/20 07:19 Activity as Tolerated [RC] PFP Peripheral IV Care [RC] Q2HR Vital Signs [RC] PER UNIT ROUTINE Acetaminophen [TylenoL] 650 mg PO Q4H PRN Calcium Carbonate [Tums] 1,000 mg PO Q2H PRN Nalbuphine [Nubain] 10 mg IVPUSH Q2H PRN Ondansetron [Zofran] 4 mg IVPUSH Q4H PRN Sodium Chloride 0.9% [Saline Flush] 10 ml FLUSH ASDIRECTED PRN Electronic Heart Tones Ext w TOCO [WOMSER] Routine Electronic Heart Tones Internal [WOMSER] Per Unit Routine Peripheral IV Insertion Adult [OM.PC] Routine Resuscitation Status Routine 06/24/20 07:20 Patient Status [ADT] Routine 06/24/20 07:22 Communication Order [RC] ASDIRECTED Notify Provider [RC] PRN Telemetry Monitoring [WOMSER] Routine 06/24/20 07:24 Intake and Output [RC] .PRN 06/24/20 07:30 Citric Acid/Sodium Citrate [Bicitra Solution] 15 ml PO Q4H PRN Famotidine [Pepcid] 20 mg PO Q12H PRN Lactated Ringers [Ringers, Lactated] 1,000 ml IV ASDIRECTED Oxytocin/Lactated Ringers [Pitocin in LR 10 Units/1,000 ML] 10 unit in 1,000 ml IV .CONTINUOUS Oxytocin/Lactated Ringers [Pitocin in LR 10 Units/1,000 ML] 10 unit in 1,000 ml IV TITRATE 06/24/20 07:37 ANTIBODY IDENTIFICATION [BBK] Stat TYPE AND SCREEN [BBK] Stat 06/25/20 00:14 Patient Status Manage Transfer [TRANSFER] Routine - Assessment Assessment:: Spontaneous vaginal delivery, Mom plans to breastfeed. Fundus firm, expected vaginal bleeding RH negative - Plan Plan:: Routine care support and education. Rhogam if indicated. CBC in am
[2020-06-25] MEDS ORDERED: Witch Hazel Medicated Pads 40/Jar TOP PRN (01:13)
[2020-06-25] MEDS ORDERED: Benzocaine/Menthol 20%-0.5% Spray 56 GM Canister TOP PRN (01:13)
[2020-06-25] MEDS: Docusate Sodium 100 MG Cap PO PRN ×2 (01:38→14:00)
[2020-06-25] MEDS: Ibuprofen 800 MG Tab PO PRN ×2 (01:39→07:55)
--- NOTE | 2020-06-25 07:30 | PCM48HPAN ---
Post Anesthesia Note - EVALUATION WITHIN 48HRS OF ANESTHETIC Vital Signs in Normal Range: Yes Patient Participated in Evaluation: Yes Respiratory Function Stable: Yes Airway Patent: Yes Cardiovascular Function Stable: Yes Hydration Status Stable: Yes Pain Control Satisfactory: Yes Nausea and Vomiting Control Satisfactory: Yes Mental Status Recovered: Yes Vital Signs: Last Vital Signs Temp 97.3 F 06/25/20 04:13 Pulse 62 06/25/20 04:13 Resp 14 06/25/20 04:13 BP 126/59 L 06/25/20 04:13 Pulse Ox 97 06/25/20 04:13
[2020-06-25] MEDS ORDERED: Prenatal Multivitamin with Calcium/Folic Acid/Iron Tab PO SCH (09:00)
--- NOTE | 2020-06-25 19:06 | PCM.PNPP ---
- General Info Date of Service: 06/25/20 Admission Dx/Problem (Free Text): Spontaneous Vaginal Delivery Subjective Update: Baby has been giving good feeding cues and attempting about every 3 hours. CLC worked with them a couple of times and she is doing better with getting a good latch and staying latched this afternoon. She does complain of some nipple tenderness but denies cracking or bruising. Bleeding is light and denies passing clots. Denies headache. Some cramping. Some tenderness in the back at the epidural site. Mood has been stable. She has been using ibuprofen for discomfort. She did receive her Rhogam today since baby's blood type was A positive. Functional Status: Reports: Pain Controlled, Tolerating Diet, Ambulating, Urinating - Review of Systems General: Reports: No Symptoms HEENT: Reports: No Symptoms Pulmonary: Reports: No Symptoms Cardiovascular: Reports: No Symptoms Gastrointestinal: Reports: No Symptoms Genitourinary: Reports: No Symptoms Musculoskeletal: Reports: Back Pain Skin: Reports: No Symptoms Neurological: Reports: No Symptoms Psychiatric: Reports: No Symptoms - General Info Date of Service: 06/25/20 - Patient Data Vital Signs - Most Recent: Last Vital Signs Temp 36.6 C 06/25/20 15:17 Pulse 75 06/25/20 15:17 Resp 14 06/25/20 15:17 BP 125/80 06/25/20 15:17 Pulse Ox 99 06/25/20 15:17 Weight - Most Recent: 70.261 kg I&O - Last 24 Hours: Intake & Output 06/25/20 06/25/20 06/25/20 06:59 14:59 22:59 Intake Total 1502 135 Output Total 325 Balance 1177 135 Lab Results - Last 24 Hours: Laboratory Results - last 24 hr 06/24/20 06/24/20 06/25/20 Range/Units 07:37 07:37 01:39 WBC (3.98-10.04) K/mm3 RBC (3.98-5.22) M/mm3 Hgb (11.2-15.7) gm/dl Hct (34.1-44.9) % MCV (79.4-94.8) fl MCH (25.6-32.2) pg MCHC (32.2-35.5) g/dl RDW Std Deviation (36.4-46.3) fL Plt Count (182-369) K/mm3 MPV (9.4-12.3) fl RPR Non-reactive (NONREACTIVE) Blood Type A NEGATIVE Gel Antibody Screen Positive Antibody Identification Anti-D Screen 0 ros/5 flds - neg RhIG Candidate? Yes Rhogam Indicated Yes, baby rh pos H 06/25/20 Range/Units 05:27 WBC 15.48 H (3.98-10.04) K/mm3 RBC 3.88 L (3.98-5.22) M/mm3 Hgb 12.7 (11.2-15.7) gm/dl Hct 36.9 (34.1-44.9) % MCV 95.1 H (79.4-94.8) fl MCH 32.7 H (25.6-32.2) pg MCHC 34.4 (32.2-35.5) g/dl RDW Std Deviation 43.1 (36.4-46.3) fL Plt Count 195 (182-369) K/mm3 MPV 10.2 (9.4-12.3) fl RPR (NONREACTIVE) Blood Type Gel Antibody Screen Antibody Identification Screen RhIG Candidate? Rhogam Indicated Med Orders - Current: Current Medications Acetaminophen (Tylenol) 650 mg PO Q4H PRN PRN Reason: Pain (Mild 1-3) and fever Benzocaine/Menthol (Dermoplast Pain Relief [place]) 0 gm TOP ASDIRECTED PRN PRN Reason: Perineal Comfort Measure Last Admin: 06/25/20 01:38 Dose: 1 container Documented by: Docusate Sodium (Colace) 100 mg PO BID PRN PRN Reason: Constipation Last Admin: 06/25/20 14:00 Dose: 100 mg Documented by: Ibuprofen (Motrin) 800 mg PO Q6H PRN PRN Reason: Mild pain or fever Last Admin: 06/25/20 07:55 Dose: 800 mg Documented by: Prenat Multivit/Willacy/Iron/Folic Ac ( Plus Iron) 1 each PO DAILY SANJAY Last Admin: 06/25/20 09:07 Dose: 1 each Documented by: Sodium Chloride (Saline Flush) 10 ml FLUSH ASDIRECTED PRN PRN Reason: Keep Vein Open Witch Tye (Tucks) 1 pad TOP ASDIRECTED PRN PRN Reason: Perineal Comfort Measure Last Admin: 06/25/20 01:38 Dose: 1 container Documented by: Discontinued Medications Acetaminophen (Tylenol) 650 mg PO Q4H PRN PRN Reason: Pain (Mild 1-3) and fever Bupivacaine HCl (Sensorcaine-Mpf 0.25%) 10 ml .ROUTE .K-MED ONE Stop: 06/24/20 00:01 Calcium Carbonate/Glycine (Tums) 1,000 mg PO Q2H PRN PRN Reason: Indigestion Citric Acid/Sodium Citrate (Bicitra Solution) 15 ml PO Q4H PRN PRN Reason: Indigestion Diphenhydramine HCl (Benadryl) 25 mg IVPUSH Q6H PRN PRN Reason: pruritis Ephedrine Sulfate (Ephedrine Sulfate) 5 mg IVPUSH ASDIRECTED PRN PRN Reason: Hypotension Famotidine (Pepcid) 20 mg PO Q12H PRN PRN Reason: Heartburn Last Admin: 06/24/20 20:20 Dose: 20 mg Documented by: Fentanyl (Sublimaze) 100 mcg EPIDUR Q3H PRN PRN Reason: Pain Last Admin: 06/24/20 18:10 Dose: 100 mcg Documented by: Fentanyl/Bupivacaine HCl (Fentanyl/Bupivacaine/Ns 2 Mcg-0.125% 100 Ml) 100 ml EPIDUR ASDIRECTED PRN PRN Reason: Pain Last Admin: 06/24/20 18:11 Dose: 100 ml Documented by: Oxytocin/Lactated Ringer's (Pitocin In Lr 10 Units/1,000 Ml) 10 unit in 1,000 mls @ 12 mls/hr IV TITRATE SANJAY; Protocol Oxytocin/Lactated Ringer's (Pitocin In Lr 10 Units/1,000 Ml) 10 unit in 1,000 mls @ 100 mls/hr IV .CONTINUOUS SANJAY; Protocol Last Admin: 06/24/20 23:41 Dose: 500 mls/hr Documented by: Lactated Ringer's (Ringers, Lactated) 1,000 mls @ 100 mls/hr IV ASDIRECTED SANJAY Last Admin: 06/24/20 21:27 Dose: 100 mls/hr Documented by: Oxytocin/Lactated Ringer's (Pitocin In Lr 10 Units/1,000 Ml) 10 unit in 1,000 mls @ 500 mls/hr IV .CONTINUOUS SANJAY Lactated Ringer's (Ringers, Lactated) 1,000 mls @ 100 mls/hr IV ASDIRECTED [facility] Lidocaine HCl (Xylocaine 1%) 50 ml INJECT ONETIME ONE Stop: 06/24/20 07:20 Last Admin: 06/24/20 23:50 Dose: 10 ml Documented by: Lidocaine HCl (Xylocaine 1%) 20 ml INJECT ONETIME ONE Stop: 06/24/20 07:31 Last Admin: 06/24/20 23:56 Dose: 20 ml Documented by: Lidocaine HCl (Xylocaine 1%) Confirm Administered Dose 50 ml .ROUTE .STK-MED ONE Stop: 06/24/20 23:48 Last Admin: 06/24/20 23:57 Dose: Not Given Documented by: Misoprostol (Cytotec) 25 mcg VAG Q4H [facility] Stop: 06/24/20 17:01 Last Admin: 06/24/20 19:49 Dose: Not Given Documented by: Nalbuphine HCl (Nubain) 10 mg IVPUSH Q2H PRN PRN Reason: Pain Nalbuphine HCl (Nubain) 10 mg IVPUSH Q2H PRN PRN Reason: Pain Ondansetron HCl (Zofran) 4 mg IVPUSH Q4H PRN PRN Reason: Nausea/Vomiting Last Admin: 06/24/20 19:52 Dose: 4 mg Documented by: Ondansetron HCl (Zofran) 4 mg IVPUSH Q4H PRN PRN Reason: Nausea/Vomiting Simethicone (Simethicone) 80 mg PO ONETIME ONE Stop: 06/24/20 07:31 Last Admin: 06/24/20 09:05 Dose: Not Given Documented by: Sodium Chloride (Saline Flush) 10 ml FLUSH ASDIRECTED PRN PRN Reason: Keep Vein Open - Interaction Disposition, : at Bedside Infant Interaction: Holding Infant Infant Feeding: Breastfed Infant; Nursed Well, Continues to Breastfeed Support Person: - Recovery Exam Fundal Tone: Firm Fundal Level: 1 Fingerbreadths Above Umbilicus Fundal Placement: Midline Lochia Amount: Small Lochia Color: Rubra/Red Perineum Description: Other (see below) Other Perinuem Description: 2nd degree laceration with repair Episiotomy/Laceration: Approximated Bladder Status: Voiding Urinary Elimination: Voided - Exam General: Alert, Oriented, Cooperative, No Acute Distress HEENT: Pupils Equal, Mucous Membr. Moist/[place] Neck: Supple Lungs: Normal Respiratory Effort Cardiovascular: Regular Rate, Regular Rhythm GI/Abdominal Exam: Normal Bowel Sounds, Soft Extremities: Normal Inspection, Non-Tender, No Pedal Edema Skin: Warm, Dry, Intact Wound/Incisions: Healing Well Neurological: No New Focal Deficit Psy/Mental Status: Alert, Normal Mood (Flat affect, but that is her baseline) - Problem List & Annotations (1) 39 weeks gestation of SNOMED Code(s): 10826374 Code(s): Z3A.39 - 39 WEEKS GESTATION OF Status: Acute Current Visit: Yes (2) Small for gestational age fetus affecting mother, antepartum SNOMED Code(s): 315679931, 501982297025 Code(s): O36.5990 - MATERN CARE FOR OTH OR SUSP POOR FETL GRTH, UNSP TRI, UNSP Status: Acute Current Visit: Yes (3) Rh negative status during in third trimester SNOMED Code(s): 509048796 Code(s): O26.893 - OTH RELATED CONDITIONS, THIRD TRIMESTER; Z67.91 - UNSPECIFIED BLOOD TYPE, RH NEGATIVE Status: Acute Current Visit: Yes (4) GERD (gastroesophageal reflux disease) SNOMED Code(s): 915279725 Code(s): K21.9 - GASTRO-ESOPHAGEAL REFLUX DISEASE WITHOUT ESOPHAGITIS Status: Acute Current Visit: Yes (5) Spontaneous vaginal delivery SNOMED Code(s): 908198926 Code(s): O80 - ENCOUNTER FOR FULL-TERM UNCOMPLICATED DELIVERY Status: Acute Current Visit: Yes (6) Breast feeding status of mother SNOMED Code(s): 328140805 Code(s): Z39.1 - ENCOUNTER FOR CARE AND EXAMINATION OF LACTATING MOTHER Status: Acute Current Visit: Yes - Problem List Review Problem List Initiated/Reviewed/Updated: Yes - My Orders Last 24 Hours: My Active Orders 06/25/20 01:13 Benzocaine/Menthol [Dermoplast Pain Relief [place]] See Dose Instructions TOP ASDIRECTED PRN Docusate Sodium [Colace] 100 mg PO BID PRN Ibuprofen [Motrin] 800 mg PO Q6H PRN witch Tye [Tucks] 1 pad TOP ASDIRECTED PRN Heat Therapy [OM.PC] PRN 06/25/20 01:13 Patient Status [ADT] Routine Activity as Tolerated [RC] PER UNIT ROUTINE May Shower [RC] ASDIRECTED Up ad Britt [RC] ASDIRECTED Vital Signs [RC] 03,,15, Assess Lochia [WOMSER] Per Unit Routine Assess Uterine Involution [WOMSER] Per Unit Routine Breast Pump [WOMSER] Per Unit Routine Perineal Care [OM.PC] Per Unit Routine Peripheral IV Discontinue [OM.PC] Routine Sitz Bath [OM.PC] Per Unit Routine 06/25/20 09:00 Vit with Ca/FA/Iron [ Plus Iron] 1 each PO DAILY 06/26/20 01:13 Heat Therapy [OM.PC] PRN - Assessment Assessment:: Spontaneous vaginal delivery, Mom plans to breastfeed. Fundus firm, expected vaginal bleeding RH negative - Plan Plan:: Routine care support and education. Rhogam if indicated. CBC in am 06/25/20 1900: 1. continue support and education 2. Rhogam given today since baby was Apos 3. CBC this am shows mild drop in Hgb 4. Pain and cramping controlled with ibuprofen.
[2020-06-26] MEDS: Ibuprofen 800 MG Tab PO PRN (01:42)
--- NOTE | 2020-06-26 10:51 | PCM.DCSUM1 ---
Discharge Summary - Hospital Course Free Text/Narrative:: 19 yo A1 at 39 weeks gestation with EDC determined by ultrasound at 13 weeks. She did have a placenta previa noted initially, but that resolved with subsequent ultrasounds. Baby has been small, measuring 2 weeks behind on ultrasound and 11% with the working EDC. We have been seeing her twice weekly with BPP and NST. She has had several BPP that scored 6/8 but then NST that day has been reactive, so final BPP score 8/10. Last ultrasound on 06/18/20 and EFW was 6 lb 1oz. She is admitted for induction of labor due to small baby. MARIAMA on last ultrasound was 15, cephalic presentation and possibly nuchal cord. I have never seen variable decels on NST. She is RH negative (A neg) and received Rhogam in April 2020. Her infectious disease screenings have been negative. 1 hour glucola normal at 116 and GBS swab negative. She did not do any screening for trisomy. She did receive Tdap immunization during the . Cervix was fingertip, long, firm and posterior with station -4 on admit. She had 1 dose of vaginal cytotec 25 mcg placed at 0855 and then at noon, I placed a mullins catheter through the cervical os and inflated the bulb to 30 cc to help ripen the cervix. A second cytotec dose was placed at 1315. At 1750, she was having moderate to strong contractions, every 1-2 minutes. The mullins had come out at about 1630. When I checked her at 1750, she was 4-5 cm dilated, 75% effaced, vertex, anterior and soft and station -2. I performed AROM to augment labor at 1800 and the fluid was clear. She requested an epidural shortly after. Epidural was placed at 1845 and she was comfortable. monitor was mostly reactive with good accelerations and periods of minimal variability. No decels. By 2300 she was completely dilated and station 0 and feeling pushy. I was called to come in. She started pushing at 2308. She pushed very well and fetus tolerated second stage of labor. Baby delivered in PAULA presentation, there was nuchal cord x 1 that was loose and easily slipped over baby's head. 3 vessels in the cord. The shoulders and the rest of the baby delivered without difficulty. It was a baby girl. Time of delivery was 2340. Baby weighed 2810 grams (6 lb 3.1oz). Apgars were 8 and 9 at 1 and 5 minutes respectively. Baby was dried and stimulated and mouth and nose suctioned with bulb suction. She was placed skin to skin on mother's abdomen. Once the cord stopped pulsating, it was clamped and cut and then baby was moved up onto mother's chest. Placenta delivered spontaneously at 2345 and was intact. There was a marginal insertion of the cord and it looked like there was a wedge shaped infarction on one edge of the placenta. She received pitocin IV bolus after delivery of baby and uterus firmed down nicely. EBL was 300 ml. There was a second degree laceration that was repaired in the usual manner with 3-0 Vicryl. Bimanual exam after the repair was completed and some blood clots were expressed. Uterus was firm. Both Mom and Baby were left in the delivery room in stable condition. She has done well with light bleeding. She has been using ibuprofen and tylenol for cramping. She has been eating well, staying hydrated and ambulating. No trouble with voiding. Denies headache. She has been exclusively and has some nipple tenderness and slight bruising noted. She did work with the CLC and is feeling more confident in getting baby to get a good latch. Breasts are still soft, but able to hand express colostrum. Mood has been stable. Diagnosis: Stroke: No Modified Kinney Scale: No Symptoms at All Modified Kinney Scale Score: 0 - Discharge Data Discharge Date: 06/26/20 Discharge Disposition: Home, Self-Care 01 Condition: Good - Referral to Home Health Primary Care Physician: Aleah Horne MD - Discharge Diagnosis/Problem(s) (1) 39 weeks gestation of SNOMED Code(s): 24176952 ICD Code: Z3A.39 - 39 WEEKS GESTATION OF Status: Acute Current Visit: Yes (2) Small for gestational age fetus affecting mother, antepartum SNOMED Code(s): 393860679, 697955483492 ICD Code: O36.5990 - MATERN CARE FOR OTH OR SUSP POOR FETL GRTH, UNSP TRI, UNSP Status: Acute Current Visit: Yes (3) Rh negative status during in third trimester SNOMED Code(s): 406505699 ICD Code: O26.893 - OTH RELATED CONDITIONS, THIRD TRIMESTER; Z67.91 - UNSPECIFIED BLOOD TYPE, RH NEGATIVE Status: Acute Current Visit: Yes (4) GERD (gastroesophageal reflux disease) SNOMED Code(s): 181171508 ICD Code: K21.9 - GASTRO-ESOPHAGEAL REFLUX DISEASE WITHOUT ESOPHAGITIS Status: Acute Current Visit: Yes (5) Spontaneous vaginal delivery SNOMED Code(s): 975891126 ICD Code: O80 - ENCOUNTER FOR FULL-TERM UNCOMPLICATED DELIVERY Status: Acute Current Visit: Yes (6) Breast feeding status of mother SNOMED Code(s): 061139806 ICD Code: Z39.1 - ENCOUNTER FOR CARE AND EXAMINATION OF LACTATING MOTHER Status: Acute Current Visit: Yes - Patient Instructions Diet: Usual Diet as Tolerated, Drink 8-10+ Glasses/Day Activity: As Tolerated Activity, Other: No intercourse Driving: May Drive Today Showering/Bathing: May Shower Notify Provider of: Fever, Increased Pain, Swelling and Redness, Drainage, Nausea and/or Vomiting - Discharge Plan *PRESCRIPTION DRUG MONITORING PROGRAM REVIEWED*: Not Applicable *COPY OF PRESCRIPTION DRUG MONITORING REPORT IN PATIENT BHAVIN: Not Applicable Home Medications: Home Meds Cholecalciferol (Vitamin D3) [Vitamin D3] 125 mcg PO DAILY 06/24/20 [History] Vits #93/Iron Fum/FA [ Formula Tablet] 1 each PO DAILY 06/24/20 [History] Acetaminophen [Tylenol] 650 mg PO Q4H PRN tablet 06/26/20 [Rx] Benzocaine/Menthol [Dermoplast Pain Relief [place]] 1 applic TOP ASDIRECTED PRN canister 06/26/20 [Rx] Docusate Sodium [Colace] 100 mg PO BID PRN cap 06/26/20 [Rx] Ibuprofen [Motrin] 800 mg PO Q6H PRN tablet 06/26/20 [Rx] witch Tye [Tucks] 1 pad TOP ASDIRECTED PRN pad 06/26/20 [Rx] Oxygen Therapy Mode: Room Air Patient Handouts: Exclusive , Breast Pumping Tips, Baby Blues, and Self-Care, and Returning to Work, Breast Engorgement, Care After Vaginal Delivery, Eating Plan for Women, Storing Breast Milk Referrals: Aleah Horne MD [Primary Care Provider] - - Discharge Summary/Plan Comment DC Time >30 min.: No Discharge Summary/Plan Comment: 19 yo A1 who was admitted for induction of labor at 39 weeks due to small baby. She did well with the induction and had without complication. Time of delivery was 2340 and she had a baby girl with Apgars 8 and 9. There was a nuchal cord that was loose. weight was 6 lb 3.3 oz (2.789 kg). Placenta delivered spontaneously. She had an epidural for labor. She did have a second degree perineal laceration that was repaired in the usual manner. EBL 300 ml and has had light flow without clots since. She is RH negative, baby was A positive and she did receive Rhogam 06/25/20. She has been exclusively and doing well with that. Some mild breast tenderness and breasts are soft but filling. Able to express colostrum. Mood stable. Plan: 1. discharge home today and follow up in the clinic in 6 weeks. 2. No intercourse for 6 weeks, will discuss contraception at 6 week visit. 3. Breastfeed on demand. 4. Rhogam received in the hospital. 5. Watch for signs of depression. I will be seeing her when she brings baby in for visit and can evaluate her mood at those visits. - General Info Date of Service: 06/26/20 Admission Dx/Problem (Free Text: Spontaneous Vaginal Delivery Functional Status: Reports: Pain Controlled, Tolerating Diet, Ambulating, Urinating - Review of Systems General: Reports: No Symptoms HEENT: Reports: No Symptoms Pulmonary: Reports: No Symptoms Cardiovascular: Reports: No Symptoms Gastrointestinal: Reports: No Symptoms Genitourinary: Reports: No Symptoms Musculoskeletal: Reports: Back Pain Skin: Reports: No Symptoms Neurological: Reports: No Symptoms Psychiatric: Reports: No Symptoms - Patient Data Vitals - Most Recent: Last Vital Signs Temp 36.2 C 06/26/20 03:21 Pulse 60 06/26/20 08:30 Resp 16 06/26/20 08:30 BP 127/87 06/26/20 08:30 Pulse Ox 100 06/26/20 08:30 Weight - Most Recent: 70.261 kg Lab Results - Last 24 hrs: Laboratory Results - last 24 hr 06/24/20 Range/Units 07:37 Antibody Identification Anti-D Med Orders - Current: Current Medications Acetaminophen (Tylenol) 650 mg PO Q4H PRN PRN Reason: Pain (Mild 1-3) and fever Last Admin: 06/25/20 20:37 Dose: 650 mg Documented by: Benzocaine/Menthol (Dermoplast Pain Relief [place]) 0 gm TOP ASDIRECTED PRN PRN Reason: Perineal Comfort Measure Last Admin: 06/25/20 01:38 Dose: 1 container Documented by: Docusate Sodium (Colace) 100 mg PO BID PRN PRN Reason: Constipation Last Admin: 06/25/20 14:00 Dose: 100 mg Documented by: Ibuprofen (Motrin) 800 mg PO Q6H PRN PRN Reason: Mild pain or fever Last Admin: 06/26/20 01:42 Dose: 800 mg Documented by: Rober Multivit/[place]/Iron/Folic Ac ( Plus Iron) 1 each PO DAILY SANJAY Last Admin: 06/25/20 09:07 Dose: 1 each Documented by: Sodium Chloride (Saline Flush) 10 ml FLUSH ASDIRECTED PRN PRN Reason: Keep Vein Open Symone Moffett (Tucks) 1 pad TOP ASDIRECTED PRN PRN Reason: Perineal Comfort Measure Last Admin: 06/25/20 01:38 Dose: 1 container Documented by: Discontinued Medications Acetaminophen (Tylenol) 650 mg PO Q4H PRN PRN Reason: Pain (Mild 1-3) and fever Bupivacaine HCl (Sensorcaine-Mpf 0.25%) 10 ml .ROUTE .STK-MED ONE Stop: 06/24/20 00:01 Calcium Carbonate/Glycine (Tums) 1,000 mg PO Q2H PRN PRN Reason: Indigestion Citric Acid/Sodium Citrate (Bicitra Solution) 15 ml PO Q4H PRN PRN Reason: Indigestion Diphenhydramine HCl (Benadryl) 25 mg IVPUSH Q6H PRN PRN Reason: pruritis Ephedrine Sulfate (Ephedrine Sulfate) 5 mg IVPUSH ASDIRECTED PRN PRN Reason: Hypotension Famotidine (Pepcid) 20 mg PO Q12H PRN PRN Reason: Heartburn Last Admin: 06/24/20 20:20 Dose: 20 mg Documented by: Fentanyl (Sublimaze) 100 mcg EPIDUR Q3H PRN PRN Reason: Pain Last Admin: 06/24/20 18:10 Dose: 100 mcg Documented by: Fentanyl/Bupivacaine HCl (Fentanyl/Bupivacaine/Ns 2 Mcg-0.125% 100 Ml) 100 ml EPIDUR ASDIRECTED PRN PRN Reason: Pain Last Admin: 06/24/20 18:11 Dose: 100 ml Documented by: Oxytocin/Lactated Ringer's (Pitocin In Lr 10 Units/1,000 Ml) 10 unit in 1,000 mls @ 12 mls/hr IV TITRATE SANJAY; Protocol Oxytocin/Lactated Ringer's (Pitocin In Lr 10 Units/1,000 Ml) 10 unit in 1,000 mls @ 100 mls/hr IV .CONTINUOUS SANJAY; Protocol Last Admin: 06/24/20 23:41 Dose: 500 mls/hr Documented by: Lactated Ringer's (Ringers, Lactated) 1,000 mls @ 100 mls/hr IV ASDIRECTED SANJAY Last Admin: 06/24/20 21:27 Dose: 100 mls/hr Documented by: Oxytocin/Lactated Ringer's (Pitocin In Lr 10 Units/1,000 Ml) 10 unit in 1,000 mls @ 500 mls/hr IV .CONTINUOUS SANJAY Lactated Ringer's (Ringers, Lactated) 1,000 mls @ 100 mls/hr IV ASDIRECTED SANJAY Lidocaine HCl (Xylocaine 1%) 50 ml INJECT ONETIME ONE Stop: 06/24/20 07:20 Last Admin: 06/24/20 23:50 Dose: 10 ml Documented by: Lidocaine HCl (Xylocaine 1%) 20 ml INJECT ONETIME ONE Stop: 06/24/20 07:31 Last Admin: 06/24/20 23:56 Dose: 20 ml Documented by: Lidocaine HCl (Xylocaine 1%) Confirm Administered Dose 50 ml .ROUTE .STK-MED ONE Stop: 06/24/20 23:48 Last Admin: 06/24/20 23:57 Dose: Not Given Documented by: Misoprostol (Cytotec) 25 mcg VAG Q4H SANJAY Stop: 06/24/20 17:01 Last Admin: 06/24/20 19:49 Dose: Not Given Documented by: Nalbuphine HCl (Nubain) 10 mg IVPUSH Q2H PRN PRN Reason: Pain Nalbuphine HCl (Nubain) 10 mg IVPUSH Q2H PRN PRN Reason: Pain Ondansetron HCl (Zofran) 4 mg IVPUSH Q4H PRN PRN Reason: Nausea/Vomiting Last Admin: 06/24/20 19:52 Dose: 4 mg Documented by: Ondansetron HCl (Zofran) 4 mg IVPUSH Q4H PRN PRN Reason: Nausea/Vomiting Simethicone (Simethicone) 80 mg PO ONETIME ONE Stop: 06/24/20 07:31 Last Admin: 06/24/20 09:05 Dose: Not Given Documented by: Sodium Chloride (Saline Flush) 10 ml FLUSH ASDIRECTED PRN PRN Reason: Keep Vein Open - Exam General: Reports: Alert, Oriented, Cooperative, No Acute Distress HEENT: Reports: Pupils Equal, Mucous Membr. Moist/Standard Neck: Reports: Supple Lungs: Reports: Normal Respiratory Effort Cardiovascular: Reports: Regular Rate, Regular Rhythm GI/Abdominal Exam: Normal Bowel Sounds, Soft, Non-Tender (Female) Exam: Enlarged Uterus (Fundus firm at umbilicus), Vaginal Bleeding, Other (Perineal laceration repair well approximated. ) Rectal (Female) Exam: Deferred Back Exam: Reports: Normal Inspection, Full Range of Motion, Other (Mild tenderness at epidural site, but no bruising.) Extremities: Normal Inspection, Normal Range of Motion, Non-Tender, No Pedal Edema, Normal Capillary Refill Skin: Reports: Warm, Dry, Intact Wound/Incisions: Reports: Healing Well Neurological: Reports: No New Focal Deficit Psy/Mental Status: Reports: Alert, Normal Affect, Normal Mood
== END 2020-06-26 12:30 | disposition home or self-care (01) | DRG 807 ==
LOC: JD.OB 06:56 → OBSVTOIN 23:40 → JD.OB 23:41
PROVIDERS: ADMIT Family Medicine; ATTEND Family Medicine
PROC: 10E0XZZ Delivery of Products of Conception, External Approach (ICD-10-PCS; principal; 2020-06-24)
PROC: 0KQM0ZZ Repair Perineum Muscle, Open Approach (ICD-10-PCS; 2020-06-24)
PROC: 3E0P7VZ Introduction of Hormone into Female Reproductive, Via Natural or Artificial Opening (ICD-10-PCS; 2020-06-24)
PROC: 0U7C7ZZ Dilation of Cervix, Via Natural or Artificial Opening (ICD-10-PCS; 2020-06-24)
PROC: 10907ZC Drainage of Amniotic Fluid, Therapeutic from Products of Conception, Via Natural or Artificial Opening (ICD-10-PCS; 2020-06-24)
PROC: 3E0R3BZ Introduction of Anesthetic Agent into Spinal Canal, Percutaneous Approach (ICD-10-PCS; 2020-06-24)
DX: O69.81X0 Labor and delivery complicated by cord around neck, without compression, not applicable or unspecified (principal); Z37.0 Single live birth; O70.1 Second degree perineal laceration during delivery; Z3A.39 39 weeks gestation of pregnancy; O26.893 Other specified pregnancy related conditions, third trimester; Z67.11 Type A blood, Rh negative; O76 Abnormality in fetal heart rate and rhythm complicating labor and delivery; Z20.828 Contact with and (suspected) exposure to other viral communicable diseases
CPT/HCPCS: 01967; 36415; 51702; 59025; 59409; 85025; 85027; 85461; 86592; 86850; 86870; 86900; 86901; A9270-GY; J2001; J2405; J2590; J2790; J3010; J3490; J7120; U0002